=== PATIENT | female | born 2000 | race Two or more races ===

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

== ENCOUNTER 2018-03-17 16:07 | Outpatient (CLI) | END 2018-03-17 23:05 | disposition home or self-care (01) ==

== ENCOUNTER 2018-03-18 11:11 | Inpatient (IN) | END 2018-03-21 12:25 | disposition home or self-care (01) | DRG 775 ==